=== PATIENT | male | born 1985 | race Hispanic/Latino ===

== ENCOUNTER 2017-12-27 11:31 | Emergency (ER) | payer SELFPAY ==
[~2017-12-27] VITALS: Ht 160 cm; Wt 53.0 kg
[2017-12-27 11:54] LABS: URINE BLOOD DIPSTICK NEGATIVE (NEGATIVE); URINE CLARITY CLEAR; URINE COLOR YELLOW; URINE GLUCOSE - DIPSTICK NEGATIVE (NEGATIVE); URINE KETONE NEGATIVE (NEGATIVE); URINE LEUK ESTERASE NEGATIVE (NEGATIVE); URINE NITRITE - DIPSTICK NEGATIVE (Negative); URINE PH 5.5 (4.5-8.0); URINE PROTEIN - DIPSTICK NEGATIVE (NEG-TRACE); URINE SPECIFIC GRAVITY >=1.030; URINE UROBILINOGEN - DIPSTICK 0.2 E.U./dL (0.2)
[2017-12-27 11:57] LABS: URINE BILIRUBIN - DIPSTICK NEGATIVE (NEGATIVE)
[2017-12-27 12:20] LABS: BARBITURATES NEGATIVE (NEGATIVE); COCAINE NEGATIVE (NEGATIVE); METHADONE NEGATIVE (NEGATIVE); OXCYCODONE NEGATIVE (NEGATIVE); TETRAHYDROCANNABIONOL NEGATIVE (NEGATIVE); TRICYLIC ANTIDEPRESSANTS NEGATIVE (NEGATIVE)
[2017-12-27 12:44] VITALS: BP 152/79
[2017-12-27] MEDS ORDERED: MEDDOSEPAK PO (12:47)
[2017-12-27] MEDS ORDERED: TORADOL PO (12:47)
[2017-12-27] MEDS ORDERED: ULTRAM50 M1 PO (12:47)
== END 2017-12-27 13:01 | disposition home or self-care (01) | DRG 552 ==
LOC: ED 11:31
PROVIDERS: Emergency Medicine
DX: M51.9 Unspecified thoracic, thoracolumbar and lumbosacral intervertebral disc disorder (principal); F17.210 Nicotine dependence, cigarettes, uncomplicated

== ENCOUNTER 2018-01-10 10:28 | Emergency (ER) | payer SELFPAY ==
[~2018-01-10] VITALS: Ht 160 cm; Wt 54.5 kg
[~2018-01-10 10:28] MED LIST: MEDDOSEPAK PO; TORADOL PO; ULTRAM50 M1 PO
[2018-01-10 11:23] VITALS: BP 154/90
[2018-01-10 11:42] LABS: HEMATOCRIT 46.3 % (39.0-50.0); HEMOGLOBIN 15.3 g/dl (14.0-18.0); IMMATURE GRANULOCYTES 0.3 % (0.0-5.0); MEAN CELL VOLUME 94.3 fL CALC (80.0-100.0); MEAN CORPUSCULAR HGB 31.2 pG CALC (26.0-32.0); NEUT# 5.9 thou/uL (1.82-7.42); RED BLOOD COUNT 4.91 mill/uL (4.70-6.10); RED CELL DISTRI WIDTH 13.6 % (11.5-15.5)
[2018-01-10 12:01] LABS: ANION GAP 16 (6-22 (CALC)); BUN 25 mg/dL (9-20); BUN/CREATININE RATIO 26 (12-20 (CALC)); CARBON DIOXIDE 23 mmol/l (22-30); CHLORIDE 106 mmol/l (95-108); CREATININE 0.9 mg/dL (0.7-1.3); GFR > 60 ML/MIN (>=60 (CALC)); GFR FOR AFR.AMER. > 60 ML/MIN (>=60 (CALC)); SODIUM 139 mmol/l (137-146)
== END 2018-01-10 11:38 | disposition left against medical advice (07) | DRG 552 ==
LOC: ED 10:28
PROVIDERS: Family Medicine
DX: M54.2 Cervicalgia (principal); Z91.19 Patient's noncompliance with other medical treatment and regimen